=== PATIENT | male | born 1965 ===

== ENCOUNTER 2017-05-28 18:38 | Observation (INO) | payer SELFPAY ==
[2017-05-28] MEDS ORDERED: Sodium Chloride 0.9% 1,000 ML IV STA (18:58)
--- NOTE | 2017-05-28 19:00 | ED PDOC ---
HPI: Psych/Substance Abuse Time Seen by Provider: 05/28/17 18:51 Chief Complaint (Nursing): Alcohol Ingestion History Per: Family Modifying Factor(s): Alcohol Additional Complaint(s): Brought by EMS, admits to ETOH ingestion, family states fell down few steps, not witnessed. Pt denies head injury. No LOC. No c/o pain to neck or back. Past Medical History Vital Signs: Last Vital Signs Temp 96.5 F L 05/28/17 18:45 Pulse 79 05/28/17 18:45 Resp 16 05/28/17 18:45 BP 117/86 05/28/17 18:45 Pulse Ox 99 05/28/17 18:45 - Medical History PMH: No Chronic Diseases - Family History Family History: States: Unknown Family Hx - Allergies Allergies/Adverse Reactions: Allergies Allergy/AdvReac Type Severity Reaction Status Date / Time No Known Allergies Allergy Verified 05/28/17 18:45 Review of Systems Musculoskeletal: Negative for: Neck Pain, Back Pain Neurological: Positive for: Headache Physical Exam - Physical Exam Appears: Positive for: Non-toxic, No Acute Distress Head Exam: Positive for: ATRAUMATIC, NORMAL INSPECTION, NORMOCEPHALIC Skin: Positive for: Normal Color, Warm, DRY Eye Exam: Positive for: EOMI, PERRL Neck: Positive for: Normal, Painless ROM, Supple Cardiovascular/Chest: Positive for: Regular Rate, Rhythm Respiratory: Positive for: CNT, Normal Breath Sounds Gastrointestinal/Abdominal: Positive for: Normal Exam, Bowel Sounds, Soft. Negative for: Tenderness Back: Positive for: Normal Inspection, Vertebral Tenderness Extremity: Positive for: Normal ROM Neurologic/Psych: Negative for: Motor/Sensory Deficits (Sleepy arousable) - Laboratory Results Result Diagrams: 05/28/17 20:00 05/28/17 20:00 - ECG O2 Sat by Pulse Oximetry: 99 Disposition - Clinical Impression Clinical Impression: Alcohol ingestion, Cerebral hemorrhage - Patient ED Disposition Is Patient to be Admitted: Yes - Disposition Disposition Time: 21:12 Condition: FAIR Forms: [facility] (Estonian) - Pt Status Changed To: Hospital Disposition Of: Observation - POA Present On Arrival: None
--- NOTE | 2017-05-28 19:44 | CT ---
EXAM: CT Head Without Intravenous Contrast EXAM DATE/TIME: 05/28/2017 7:01 PM CLINICAL HISTORY: 51 years old, male; Signs and symptoms; Other: ETOH; Additional info: R/O bleed TECHNIQUE: Axial computed tomography images of the head/brain without intravenous contrast. All CT scans at this facility use one or more dose reduction techniques, viz.: automated exposure control; ma/kV adjustment per patient size (including targeted exams where dose is matched to indication; i.e. head); or iterative reconstruction technique. Coronal and sagittal reformatted images were created and reviewed. COMPARISON: There are no prior studies for comparison. FINDINGS: Brain: Ventricles are normal in size and configuration. There is no midline shift. There are no intra-axial or extra-axial mass lesions. There is a 5.5 x 8.7 x 4.7 mm hemorrhage in the posterior right occipital lobe. No other hemorrhages are visualized. There are no abnormal fluid collections. Griffith-white differentiation is maintained. Ventricles: See above. Bones: Cranial vault is intact. Soft tissues: unremarkable Sinuses: There is no acute sinusitis. Ears and mastoids: Middle ears and mastoids are unremarkable Orbits: Orbital contents are unremarkable. IMPRESSION: 5.5 x 8.7 x 4.7 mm right occipital hemorrhage
[2017-05-28 20:24] LABS: BASO # 0.1 K/uL (0.0-0.2); BASO % 0.3 % (0.0-2.0); EOS # 0.1 K/uL (0.0-0.7); EOS % 0.3 % (0.0-4.0); HEMATOCRIT 44.1 % (35.0-51.0); LYMPH # 1.4 K/uL (1.0-4.3); LYMPH % 8.7 % (20.0-40.0); MEAN CELL VOLUME 91.6 fl (80.0-94.0); MEAN CORPUSCULAR HEMOGLOBIN 30.4 pg (27.0-31.0); MEAN CORPUSCULAR HGB CONC 33.2 g/dL (33.0-37.0); MEAN PLATELET VOLUME 8.6 fl (7.2-11.7); MONO # 0.8 K/uL (0.0-0.8); MONO % 5.1 % (0.0-10.0); NEUT # 14.1 K/uL (1.8-7.0); NEUT % 85.6 % (50.0-75.0); PLATELET COUNT 172 K/uL (130-400); RED CELL DISTRIBUTION WIDTH 13.3 % (11.5-14.5); WHITE BLOOD COUNT 16.4 K/uL (4.8-10.8)
[2017-05-28 20:35] LABS: ALB/GLOB RATIO 1.2 (1.0-2.1); BILIRUBIN,TOTAL 0.7 mg/dl (0.2-1.3); CALCIUM 8.8 mg/dL (8.4-10.2); CARBON DIOXIDE 21 mmol/L (22-30); CHLORIDE 106 mmol/L (98-107); GFR AFRICAN-AMERICAN > 60; GLUCOSE,RANDOM 94 mg/dL (75-110); SODIUM 141 mmol/l (132-148)
[2017-05-28 20:36] LABS: ALKALINE PHOSPHATASE 79 U/L (38-126); ALT/SGPT 32 U/L (21-72); AST/SGOT 55 U/L (17-59); BLOOD UREA NITROGEN 11 mg/dl (9-20); POTASSIUM 4.2 MMOL/L (3.6-5.0)
[2017-05-28 21:06] LABS: MYELOCYTE 1 % (0-0); NEUTROPHIL 83 % (42-75); REACTIVE LYMPHOCYTES 1 % (0-0); TOTAL CELLS COUNTED 100
--- NOTE | 2017-05-28 21:19 | CP.PCM.HP ---
History of Present Illness - History of Present Illness History of Present Illness: CC: Fall, head trauma, ICH HPI: 51 y/o male with no chronic medical problems who comes in after a fall. Per , they had come back from eating/drinking and were checking out of their [employer]. While coming down the stairs after checking out, patient fell down part of a flight of stairs, hitting his head. Did not lose consciousness. They called EMS and he was brought directly here. Other than CALVIN, patient has no other c/c. He has no n/v. No visual problems, no focal weakness. ROS: 14 systems reviewed, negative other than HPI MHx/SHx: None Allergies: None Family Hx: Reviewed, no relevant findings Social Hx: Lives with family, does drink EtOH 'socially', no significant tobacco Present on Admission - Present on Admission Any Indicators Present on Admission: No Past Patient History - Past Social History Smoking Status: Unknown If Ever Smoked - PSYCHIATRIC Hx Substance Use: No Meds Allergies/Adverse Reactions: Allergies Allergy/AdvReac Type Severity Reaction Status Date / Time No Known Allergies Allergy Verified 05/28/17 18:45 Physical Exam - Constitutional Appears: No Acute Distress - Head Exam Additional comments: signs of trauma to head - Eye Exam Eye Exam: EOMI, PERRL - ENT Exam ENT Exam: Mucous Membranes Moist - Neck Exam Neck exam: Positive for: Full Rom - Respiratory Exam Respiratory Exam: Clear to Auscultation Bilateral, NORMAL BREATHING PATTERN - Cardiovascular Exam Cardiovascular Exam: REGULAR RHYTHM, +S1, +S2 - GI/Abdominal Exam GI & Abdominal Exam: Normal Bowel Sounds, Soft - Extremities Exam Extremities exam: Positive for: full ROM, normal inspection - Neurological Exam Neurological exam: Alert, CN II-XII Intact, Oriented x3 - Psychiatric Exam Psychiatric exam: Normal Affect, Normal Mood - Skin Skin Exam: Dry, Warm Results - Vital Signs Recent Vital Signs: Last Vital Signs Temp 96.5 F L 05/28/17 18:45 Pulse 79 05/28/17 18:45 Resp 16 05/28/17 18:45 BP 117/86 05/28/17 18:45 Pulse Ox 99 05/28/17 21:12 - Labs Result Diagrams: 05/28/17 20:00 05/28/17 20:00 Labs: Laboratory Results - last 24 hr 05/28/17 05/28/17 05/28/17 19:07 20:00 20:00 WBC 16.4 H RBC 4.81 Hgb 14.6 Hct 44.1 MCV 91.6 MCH 30.4 MCHC 33.2 RDW 13.3 Plt Count 172 MPV 8.6 Neut % (Auto) 85.6 H Lymph % (Auto) 8.7 L Cole % (Auto) 5.1 Eos % (Auto) 0.3 Baso % (Auto) 0.3 Neut # 14.1 H Lymph # 1.4 Cole # 0.8 Eos # 0.1 Baso # 0.1 Neutrophils % (Manual) 83 H Lymphocytes % (Manual) 12 L Reactive Lymphs % 1 H Monocytes % (Manual) 3 Myelocytes % 1 H Platelet Estimate Normal RBC Morphology Normal PT 11.1 INR 1.0 Sodium Potassium Chloride Carbon Dioxide Anion Gap BUN Creatinine Est GFR ( Amer) Est GFR (Non-Af Amer) Random Glucose Calcium Total Bilirubin AST ALT Alkaline Phosphatase Total Protein Albumin Globulin Albumin/Globulin Ratio Alcohol, Quantitative 223 H 05/28/17 20:00 WBC RBC Hgb Hct MCV MCH MCHC RDW Plt Count MPV Neut % (Auto) Lymph % (Auto) Cole % (Auto) Eos % (Auto) Baso % (Auto) Neut # Lymph # Cole # Eos # Baso # Neutrophils % (Manual) Lymphocytes % (Manual) Reactive Lymphs % Monocytes % (Manual) Myelocytes % Platelet Estimate RBC Morphology PT INR Sodium 141 Potassium 4.2 Chloride 106 Carbon Dioxide 21 L Anion Gap 18 BUN 11 Creatinine 1.0 Est GFR ( Amer) > 60 Est GFR (Non-Af Amer) > 60 Random Glucose 94 Calcium 8.8 Total Bilirubin 0.7 AST 55 ALT 32 Alkaline Phosphatase 79 Total Protein 8.0 Albumin 4.4 Globulin 3.6 Albumin/Globulin Ratio 1.2 Alcohol, Quantitative - Imaging and Cardiology CT scan - head Status: Image reviewed by me, Report reviewed by me (R occipital hemm; otherwise no significant findings) Assessment & Plan (1) Cerebral hemorrhage Assessment and Plan: 51 y/o male with ICH s/p fall/head trauma in setting of EtOH ingestion. -Tele-obs -Repeat CT Head in AM -Repeat BMP/CBC in AM given minor abnormalities; repeat EtOH in AM -Neuro check q4h -Neurosurg consult in AM -Tylenol for pain -Zofran IV for nausea -SCDs only for DVT PPx Status: Acute (2) Alcohol ingestion Status: Acute (3) DVT prophylaxis Status: Acute
[2017-05-28] MEDS: Sodium Chloride 0.9% 1,000 ML IV SCH (23:16)
[2017-05-29 04:52] VITALS: RESP 18
[2017-05-29 05:42] LABS: HEMATOCRIT 40.6 % (35.0-51.0); MEAN CELL VOLUME 90.3 fl (80.0-94.0); MEAN CORPUSCULAR HEMOGLOBIN 31.1 pg (27.0-31.0); MEAN CORPUSCULAR HGB CONC 34.4 g/dL (33.0-37.0); RED CELL DISTRIBUTION WIDTH 13.2 % (11.5-14.5); WHITE BLOOD COUNT 10.5 K/uL (4.8-10.8)
[2017-05-29 06:09] LABS: ALCOHOL SERUM < 10 mg/dl (0-10); BLOOD UREA NITROGEN 8 mg/dl (9-20); CALCIUM 8.5 mg/dL (8.4-10.2); CARBON DIOXIDE 22 mmol/L (22-30); CHLORIDE 105 mmol/L (98-107); GFR AFRICAN-AMERICAN > 60; GLUCOSE,RANDOM 107 mg/dL (75-110); POTASSIUM 3.7 MMOL/L (3.6-5.0); SODIUM 140 mmol/l (132-148)
--- NOTE | 2017-05-29 08:38 | RAD ---
PROCEDURE: Radiographs of the Lumbar Spine. HISTORY: trauma r/o fx COMPARISON: No prior. FINDINGS: BONES: Normal alignment. No listhesis. No fracture. DISC SPACES: Normal intervertebral disc heights are identified. Minimal multilevel spondylosis appreciate affecting the mid and inferior levels. No destructive bony change. OTHER FINDINGS: None. 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 No fracture or spondylolisthesis identified.
--- NOTE | 2017-05-29 08:49 | RAD ---
HISTORY: cough COMPARISON: No prior. FINDINGS: LUNGS: Inspiratory volume is somewhat limited with crowding of bronchovascular markings favored over limited bilateral basilar infiltrates. The left heart border is obscured history reflecting atelectasis or possible infiltrate at the lingula. Clinically correlate. PLEURA: No significant pleural effusion identified, no pneumothorax apparent. CARDIOVASCULAR: Somewhat prominent cardiac silhouette is appreciated which could be a function of magnification given frontal technique. Clinically correlate. No pulmonary vascular derangement evident grossly. Cardiomegaly not completely excluded. OSSEOUS STRUCTURES: No significant abnormalities. VISUALIZED UPPER ABDOMEN: Normal. OTHER FINDINGS: None. IMPRESSION: Questionable cardiomegaly. No pulmonary vascular derangement. Inspiratory volume is diminished with crowding of the bronchovascular markings favored over bilateral basilar infiltrates. However, atelectasis or infiltrate may be obscuring left heart border.
--- NOTE | 2017-05-29 08:52 | CT ---
PROCEDURE: CT Cervical Spine without contrast HISTORY: Blunt trauma, fall COMPARISON: None TECHNIQUE: Axial computed tomography images were obtained of the cervical spine without the use of intravenous contrast. Coronal and sagittal reformatted images were created and reviewed. Radiation dose: Total exam DLP = 511.97 mGy-cm. This CT exam was performed using one or more of the following dose reduction techniques: Automated exposure control, adjustment of the mA and/or kV according to patient size, and/or use of iterative reconstruction technique. FINDINGS: VERTEBRAE: No fracture. Normal alignment. No destructive bony lesion. DISCS/SPINAL CANAL/NEURAL FORAMINA: No significant central canal or neural foraminal stenosis. Mild multilevel degenerative changes primarily disc space narrowing. PARASPINAL SOFT TISSUES: Unremarkable. OTHER FINDINGS: None. IMPRESSION: No acute findings related to/accounting for the clinical presentation. Concordant results (preliminary interpretation) provided by [facility]. Procedure Completed: 20:21. Preliminary ([facility]) Report: Dictated and Authenticated: 20:39. Final Interpretation: 08:50. . May 29, 2017.
[2017-05-29] MEDS: Sodium Chloride 0.9% 1,000 ML IV SCH (09:07)
[2017-05-29] MEDS ORDERED: Iohexol 300 100 ML IJ ONE (09:17)
--- NOTE | 2017-05-29 10:02 | CT ---
PROCEDURE: CT HEAD WITH CONTRAST HISTORY: ICH COMPARISON: Unenhanced head CT 05/28/2017. TECHNIQUE: Axial computed tomography images were obtained through the head/brain with intravenous contrast. Contrast dose: Omnipaque 300, 95 cc. Radiation dose: Total exam DLP = 80.68 mGy-cm. This CT exam was performed using one or more of the following dose reduction techniques: Automated exposure control, adjustment of the mA and/or kV according to patient size, and/or use of iterative reconstruction technique. FINDINGS: HEMORRHAGE: The prior right occipital contusion/hemorrhage is unchanged in size and likely density overall. It has not expanded and no new intracranial hemorrhage is identified grossly. BRAIN: No mass, mass effect or edema. No abnormal intracranial enhancement. VENTRICLES: Unremarkable. No hydrocephalus. CALVARIUM: Unremarkable. PARANASAL SINUSES: Unremarkable as visualized. No significant inflammatory changes. MASTOID AIR CELLS: Unremarkable as visualized. No mastoid effusion. OTHER FINDINGS: None. IMPRESSION: Stable focal contusion/ hemorrhage at the medial right occipital lobe with no definitive new intracranial hemorrhage appreciable. No abnormal intracranial enhancement is appreciated above or below the tentorium including throughout the brainstem. No definite fracture appreciated throughout the calvarium or skullbase.
[2017-05-29 12:09] VITALS: BP 131/72; PULSE 86; TEMP 98.8; O2SAT 97
--- NOTE | 2017-05-29 12:26 | CP.PCM.DIS ---
Provider - Provider Date of Admission: 05/28/17 21:11 Attending physician: Ivy Flores MD Consults: Neurosurgery: Dr Horne Time Spent in preparation of Discharge (in minutes): 30 Diagnosis - Discharge Diagnosis (1) Alcohol intoxication Status: Acute (2) Cerebral hemorrhage Status: Acute Hospital Course - Lab Results Lab Results: Most Recent Lab Values WBC 10.5 K/uL (4.8-10.8) 05/29/17 04:20 RBC 4.50 Mil/uL (4.40-5.90) 05/29/17 04:20 Hgb 14.0 g/dL (12.0-18.0) 05/29/17 04:20 Hct 40.6 % (35.0-51.0) 05/29/17 04:20 MCV 90.3 fl (80.0-94.0) 05/29/17 04:20 MCH 31.1 pg (27.0-31.0) H 05/29/17 04:20 MCHC 34.4 g/dL (33.0-37.0) 05/29/17 04:20 RDW 13.2 % (11.5-14.5) 05/29/17 04:20 Plt Count 158 K/uL (130-400) 05/29/17 04:20 MPV 8.6 fl (7.2-11.7) 05/28/17 20:00 Neut % (Auto) 85.6 % (50.0-75.0) H 05/28/17 20:00 Lymph % (Auto) 8.7 % (20.0-40.0) L 05/28/17 20:00 [place] % (Auto) 5.1 % (0.0-10.0) 05/28/17 20:00 Eos % (Auto) 0.3 % (0.0-4.0) 05/28/17 20:00 Baso % (Auto) 0.3 % (0.0-2.0) 05/28/17 20:00 Neut # 14.1 K/uL (1.8-7.0) H 05/28/17 20:00 Lymph # 1.4 K/uL (1.0-4.3) 05/28/17 20:00 [place] # 0.8 K/uL (0.0-0.8) 05/28/17 20:00 Eos # 0.1 K/uL (0.0-0.7) 05/28/17 20:00 Baso # 0.1 K/uL (0.0-0.2) 05/28/17 20:00 Neutrophils % (Manual) 83 % (42-75) H 05/28/17 20:00 Lymphocytes % (Manual) 12 % (20-50) L 05/28/17 20:00 Reactive Lymphs % 1 % (0-0) H 05/28/17 20:00 Monocytes % (Manual) 3 % (0-10) 05/28/17 20:00 Myelocytes % 1 % (0-0) H 05/28/17 20:00 Platelet Estimate Normal (NORMAL) 05/28/17 20:00 RBC Morphology Normal (NORMAL) 05/28/17 20:00 PT 11.1 Seconds (9.8-13.1) 05/28/17 20:00 INR 1.0 (0.9-1.2) 05/28/17 20:00 Sodium 140 mmol/l (132-148) 05/29/17 04:20 Potassium 3.7 MMOL/L (3.6-5.0) 05/29/17 04:20 Chloride 105 mmol/L (98-107) 05/29/17 04:20 Carbon Dioxide 22 mmol/L (22-30) 05/29/17 04:20 Anion Gap 17 (10-20) 05/29/17 04:20 BUN 8 mg/dl (9-20) L 05/29/17 04:20 Creatinine 0.8 mg/dl (0.8-1.5) 05/29/17 04:20 Est GFR ( Amer) > 60 05/29/17 04:20 Est GFR (Non-Af Amer) > 60 05/29/17 04:20 POC Glucose (mg/dL) 106 mg/dL (65-110) 05/28/17 19:12 Random Glucose 107 mg/dL (75-110) 05/29/17 04:20 Calcium 8.5 mg/dL (8.4-10.2) 05/29/17 04:20 Total Bilirubin 0.7 mg/dl (0.2-1.3) 05/28/17 20:00 AST 55 U/L (17-59) 05/28/17 20:00 ALT 32 U/L (21-72) 05/28/17 20:00 Alkaline Phosphatase 79 U/L (38-126) 05/28/17 20:00 Total Protein 8.0 G/DL (6.3-8.2) 05/28/17 20:00 Albumin 4.4 g/dL (3.5-5.0) 05/28/17 20:00 Globulin 3.6 gm/dL (2.2-3.9) 05/28/17 20:00 Albumin/Globulin Ratio 1.2 (1.0-2.1) 05/28/17 20:00 Alcohol, Quantitative < 10 mg/dl (0-10) 05/29/17 04:20 - Hospital Course Hospital Course: 51 y/o male with no chronic medical problems was brought in by EMS after a fall. Per , they had come back from eating/drinking and were checking out of their AirBnB. While coming down the stairs after checking out, patient fell down part of a flight of stairs, hitting his head. He did not lose consciousness. They called EMS and he was brought directly here. Other than CALVIN, patient has no other complaint. He has no n/v. No visual problems, no focal weakness. CT of the Head done in ED showed : Right Occipital hemorrhage ( 5.5 x 8.7 mm) -Pt was observed in Telemetry, Neuro checks done -Pt had no focal neuro deficit - Neuro surgery consulted - Dr Horne rec rpt CT of the head -Repeat CT Head in AM showed stable hemorrhage - pt is asymptomatic, denies CALVIN, no dizziness, no visual sxs, no neuro deficit. - tolerated PO intake - Lumbar spine xray, CXR and C spine CT : no fracture - discussed case with Dr Horne - cleared pt for discharge , and is ok to fly back to [place] Discharge Exam - Head Exam Head Exam: ATRAUMATIC, NORMAL INSPECTION, NORMOCEPHALIC - Eye Exam Eye Exam: EOMI, Normal appearance, PERRL. absent: Periorbital swelling Pupil Exam: NORMAL ACCOMODATION - ENT Exam ENT Exam: Mucous Membranes Moist, Normal External Ear Exam - Neck Exam Neck exam: Full Rom - Respiratory Exam Respiratory Exam: NORMAL BREATHING PATTERN. absent: Rales, Wheezes, Respiratory Distress - Cardiovascular Exam Cardiovascular Exam: REGULAR RHYTHM, +S1, +S2 - GI/Abdominal Exam GI & Abdominal Exam: Normal Bowel Sounds, Soft. absent: Tenderness - Extremities Exam Extremities exam: full ROM, normal capillary refill, normal inspection, pedal pulses present - Back Exam Back exam: FULL ROM. absent: CVA tenderness (L), CVA tenderness (R), paraspinal tenderness, vertebral tenderness - Neurological Exam Neurological exam: Alert, CN II-XII Intact, Normal Gait, Oriented x3, Reflexes Normal - Psychiatric Exam Psychiatric exam: Normal Affect, Normal Mood - Skin Skin Exam: Dry, Intact, Normal Color, Warm Discharge Plan - Follow Up Plan Condition: GOOD Disposition: HOME/ ROUTINE Additional Instructions: ff up with PMD puja no NSAIDs ( no Ibuprofen, Naproxen), no Aspirin go to the nearest Emergency room if with severe headache, vomiting, visual change or neurologic deficit
--- NOTE | 2017-05-29 17:47 | CARD ---
APPROVED REPORT EKG Measurement Heart [id number] <Conclusion> Sinus rhythm with occasional premature ventricular complexes Otherwise normal ECG
== END 2017-05-29 13:15 | disposition home or self-care (01) ==
LOC: H.ER 18:38 → H.ERHOLD 21:11 → H.TEL 22:47
PROVIDERS: ADMIT Internal Medicine; ATTEND Internal Medicine
DX: I61.1 Nontraumatic intracerebral hemorrhage in hemisphere, cortical (principal); S09.90XA Unspecified injury of head, initial encounter; F10.129 Alcohol abuse with intoxication, unspecified; Y90.7 Blood alcohol level of 200-239 mg/100 ml; W10.9XXA Fall (on) (from) unspecified stairs and steps, initial encounter; Y93.9 Activity, unspecified; Y92.9 Unspecified place or not applicable
CPT/HCPCS: 36415; 70450; 70460; 71010; 72110; 72125; 80048; 80053; 82948; 85025; 85027; 85610; 93005; 99285; C9113; G0378; G0480; J2405; J7040; Q9967